=== PATIENT | male | born 1970 | race Caucasian/White ===

== ENCOUNTER 2017-02-15 07:51 | Emergency (ER) | payer OTHER ==
--- NOTE | 2017-02-15 09:54 | RAD ---
Indication: Left leg pain. Duplex Doppler sonography of the deep venous system of the left lower extremity deep venous system was performed. Bilaterally the common femoral veins appear patent and compressible. Left proximal greater saphenous vein, proximal deep femoral vein, femoral vein, popliteal vein, and peroneal veins appear patent and compressible. The paired posterior tibial veins demonstrates no evidence of flow with noncompressibility. This is consistent with deep venous thrombosis. IMPRESSION: DEEP VENOUS THROMBOSIS INVOLVING THE PAIRED POSTERIOR TIBIAL VEINS IN THE CALF.
[2017-02-15 09:56] VITALS: BP 136/88
--- NOTE | 2017-02-15 10:27 | UC ---
Lower Extremity/Ankle HPI - HPI Summary HPI Summary: 4 DAYS OF WORSENING LEFT CALF PAIN AND ANKLE SWELLING. PT TOOK AN AIRPLANE TO [place] 01/21/17 AND RETURNED 02/05/17. 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 DENIES CP, SOB OR NAUSEA. PAIN IMPROVES WITH ACTIVITY. NO PERSONAL OR FAMILY H/O CLOTTING OR BLOOD DISORDERS. - History of Current Complaint Chief Complaint: UCLowerExtremity Stated Complaint: LOWER LEG PAIN Time Seen by Provider: 02/15/17 09:03 Hx Obtained From: Patient Onset/Duration: Gradual Onset, Lasting Days, Still Present Severity Initially: Mild Severity Currently: Mild Pain Intensity: 1 Pain Scale Used: 0-10 Numeric Alleviating Factor(s): Nothing Able to Bear Weight: Yes - Allergies/Home Medications Allergies/Adverse Reactions: Allergies Allergy/AdvReac Type Severity Reaction Status Date / Time No Known Allergies Allergy Verified 02/15/17 07:57 Home Medications: Home Medications Ibuprofen TAB* [Advil TAB*] 2 tab PO PRN 02/15/17 [History] PMH/Surg Hx/FS Hx/Imm Hx Previously Healthy: Yes - Surgical History Surgical History: None - Family History Known Family History: Negative: Blood Disorder - Social History Alcohol Use: None Substance Use Type: None Smoking Status (MU): Never Smoked Tobacco Review of Systems Constitutional: Negative Skin: Negative Respiratory: Negative Cardiovascular: Negative Gastrointestinal: Negative Musculoskeletal: Calf Tenderness All Other Systems Reviewed And Are Negative: Yes Physical Exam Triage Information Reviewed: Yes Appearance: Well-Appearing, No Pain Distress, Well-Nourished Vital Signs: Initial Vital Signs Temp 98.4 F 02/15/17 07:58 Pulse 73 02/15/17 07:58 Resp 16 02/15/17 07:58 BP 138/94 02/15/17 07:58 Pulse Ox 100 02/15/17 07:58 Vital Signs Reviewed: Yes Eyes: Positive: Conjunctiva Clear ENT: Positive: Hearing grossly normal Neck: Positive: Supple Respiratory Exam: Normal Cardiovascular Exam: Normal Abdomen Description: Positive: Soft Musculoskeletal: Positive: ROM Intact, Other: - CALF CIRCUMFERENCE: RIGHT 37.5CM , LEFT 39.5CM. LEFT CALF TENDERNESS. EQUIVOCAL HOMANS Neurological: Positive: Alert Psychological: Positive: Age Appropriate Behavior Skin: Negative: rashes Lower Extremity Course/Dx - Course Course Of Treatment: TO [facility] BY PRIVATE CAR - Differential Dx/Diagnosis Provider Diagnoses: DEEP VENOUS THROMBOSIS INVOLVING THE PAIRED POSTERIOR TIBIAL VEINS IN THE LEFT CALF Discharge - Discharge Plan Condition: Stable Disposition: AGAINST MEDICAL ADVICE Referrals: Joshua Wood MD [Primary Care Provider] -
== END 2017-02-15 10:32 | disposition left against medical advice (07) ==
LOC: UCEAST 07:51
DX: I82.402 Acute embolism and thrombosis of unspecified deep veins of left lower extremity (principal)
CPT/HCPCS: 99202; G0463

== ENCOUNTER → 2017-02-15 10:44 | Emergency (ER) | payer OTHER ==
[~2017-02-15 10:44] MED LIST: Rivaroxaban TAB(*) 15 MG PO ONE
[2017-02-15 12:52] LABS: Hematocrit 43 % (42-52); Hemoglobin 14.5 g/dl (14.0-18.0); Mean Corpuscular HGB Conc 33 g/dl (31-36); Mean Corpuscular Hemoglobin 30 pg (27-31); Mean Corpuscular Volume 90 fL (80-94); Mean Platelet Volume 9 um3 (7.4-10.4); Red Blood Count 4.81 10^6/ul (4.0-5.4); Red Cell Distribution Width 13 % (10.5-15); White Blood Count 8.1 10^3/ul (3.5-10.8)
[2017-02-15 13:21] LABS: BUN/Creatinine Ratio 18.9 (8-20); Calcium 9.2 mg/dL (8.6-10.3); EGFR African American 145.2 (>60); EGFR Non-African American 112.9 (>60); Globulin 2.9 g/dL (2-4); Potassium 4.3 mmol/L (3.5-5.0); Total Bilirubin 0.8 mg/dL (0.2-1.0); Total Protein 6.9 g/dL (6.4-8.9)
[2017-02-15 15:10] VITALS: BP 133/77
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
== END | disposition home or self-care (01) ==
LOC: ED 10:44
DX: I82.4Z2 Acute embolism and thrombosis of unspecified deep veins of left distal lower extremity (principal); M25.572 Pain in left ankle and joints of left foot
CPT/HCPCS: 36415; 80053; 85025; 85610; 85730; 99282

== ENCOUNTER 2017-04-09 17:24 | Observation (INO) | payer OTHER ==
[2017-04-09] MEDS ORDERED: NS 0.9% 1000 ML* 1,000 ML IV ONE ×2 (17:31→21:14)
--- NOTE | 2017-04-09 18:02 | RAD ---
Indication: Fever. Single frontal view of the chest performed at 1743 hours was reviewed. No prior study is available for comparison. No mediastinal shift is noted. Heart is of normal size and configuration. Lung snyder appear clear. IMPRESSION: NO ACTIVE CARDIOPULMONARY DISEASE IS NOTED.
[2017-04-09 18:33] LABS: Hematocrit 35 % (42-52); Hemoglobin 12.2 g/dl (14.0-18.0); Mean Corpuscular HGB Conc 35 g/dl (31-36); Mean Corpuscular Hemoglobin 31 pg (27-31); Mean Corpuscular Volume 90 fL (80-94); Mean Platelet Volume 9 um3 (7.4-10.4); Red Blood Count 3.91 10^6/ul (4.0-5.4); Red Cell Distribution Width 14 % (10.5-15); White Blood Count 10.7 10^3/ul (3.5-10.8)
[2017-04-09 18:44] LABS: Urine Bacteria Absent (Absent); Urine Bilirubin Negative (Negative); Urine Glucose Negative (Negative); Urine Nitrite Negative (Negative)
[2017-04-09 18:46] LABS: Albumin 3.8 g/dL (3.2-5.2); Calcium 8.6 mg/dL (8.6-10.3); EGFR African American 94.9 (>60); EGFR Non-African American 73.8 (>60); Globulin 3.2 g/dL (2-4); Potassium 3.6 mmol/L (3.5-5.0); Total Bilirubin 1.5 mg/dL (0.2-1.0)
[2017-04-09 18:55] LABS: Troponin I 0.08 ng/mL (<0.04)
[2017-04-09] MEDS ORDERED: Acetaminophen TAB* 325 MG PO ONE (19:34)
[2017-04-09 19:59] LABS: Troponin I 0.09 ng/mL (<0.04)
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
[2017-04-09] MEDS ORDERED: NS 0.9% 1000 ML* 1,000 ML IV SCH (21:15)
[2017-04-09] MEDS ORDERED: Acetaminophen TAB* 325 MG PO PRN (21:17)
[2017-04-09 21:54] LABS: C Reactive Protein 161.61 mg/L (< 5.00)
[2017-04-09] MEDS: DOXYcycline CAP(*) 100 MG PO SCH (22:11)
[2017-04-09] MEDS ORDERED: Rivaroxaban TAB(*) 20 MG TAB PO SCH (22:30)
--- NOTE | 2017-04-10 01:31 | HP ---
CC: Dr. Wood * [facility] MEDICINE HISTORY AND PHYSICAL: DATE OF ADMISSION: 04/09/17 PRIMARY CARE PHYSICIAN: Dr. Wood. ATTENDING PHYSICIAN: Felix Bone MD * (dictation provided by Katina Parham NP). CHIEF COMPLAINT: Lightheadedness, feeling drained, and fever. HISTORY OF PRESENT ILLNESS: Mr. 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 The patient has been on Xarelto and taking it regularly. He reports that the pain related to the DVT in his left lower extremity resolved after about a week. The patient states he is very active. 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 Yesterday at about noon, he suddenly began feeling unwell. He initially describes it as feeling dizzy, but on further questioning , he denies any room spinning. He describes more a feeling of lightheadedness and a feeling of being drained. He likens it to what he would expect it would feel like to have low blood sugar or low blood pressure, although he himself has never had either. He was able to ride his bike home despite this feeling and had an uneventful evening. In the morning, he woke and again, felt very drained. He went to work. He had a mild headache and felt a little bit disoriented. He took his heart rate and it was 95, which seemed high for him for being at rest and ultimately he decided to come to the emergency room for evaluation. In the emergency room, Mr. Guerrier was noted to have a fever. Initially it was 102.5 and peaked at 103.7, but now it is down to 98.8. With this, he is tachycardic with heart rate running into 120s. His blood pressure is running 110s to 130s. His O2 saturation is 100% on room air. His respiratory rate is up as high as 32. His labs show no leukocytosis. He has a slight hyponatremia with sodium of 131. His T-bili is slightly elevated to 1.5 and his hemoglobin is down to 12.2. His other LFTs are normal. He also has elevated troponin from 0.08 on arrival to 0.09 on followup. His urine shows no evidence of infection. His group A strep swab is negative. Chest x-ray is negative. His EKG shows no evidence of ischemia. PAST MEDICAL HISTORY: DVT, on Xarelto. MEDICATIONS: Xarelto 20 mg p.o. daily. ALLERGIES: No known drug allergies. FAMILY HISTORY: The patient's father's history is unknown, but mother is very active and runner at age 72. REVIEW OF SYSTEMS: A 14-point review of systems was completed with Mr. Guerrier and all those not mentioned above were negative. PHYSICAL EXAMINATION GENERAL: Mr. Guerrier is sitting in bed. He is in no acute distress. VITAL SIGNS: Temp 98.8, heart rate 119, respiratory rate 28, O2 saturation 100 % on room air, blood pressure 118/74. LUNGS: Clear to auscultation bilaterally without accessory muscle use and good aeration. HEART: S1, S2. No murmur, rub, or gallop and regular. ABDOMEN: Soft, nontender with bowel sounds positive x4. NEURO: He is alert. He is oriented x3. He moves all extremities equally. There is no facial asymmetry or focal weakness. Extraocular movements are intact. EXTREMITIES: No cyanosis or edema. SKIN: The patient has very tiny red bug bite area of erythema to his mid calf on the medial portion. He states that this is where the tick bite was. There was no evidence of erythema migrans. DIAGNOSTIC STUDIES/LAB DATA: WBC 10.7, hemoglobin 12.2, hematocrit 35, platelet count 139. INR 1.35. Sodium 131, potassium 3.6, chloride 98, serum bicarbonate 24, BUN 16, creatinine 1.07, glucose 115. Troponin is 0.08, followed by 0.09. Urine shows no evidence of infection. Group A strep swab is negative. Chest x-ray shows no evidence of infection. EKG shows sinus rhythm and no evidence of ischemia. ASSESSMENT AND PLAN: Mr. Guerrier is a 47-year-old male who had a recent diagnosis of deep venous thrombosis in January 2017, on Xarelto. He presents with a day and a half of odd sensations of feeling lightheaded and drained now with fever, tachycardia, and elevated troponin. Our plans are for observation in the hospital for the followin. Fever: I suspect that the patient's initial symptoms were indicative of an early infection. His workup thus far is negative with a negative UA and chest x - ray. He also has no leukocytosis. I am more suspicious for a viral process, but with his recent tick bite, I am suspicious for possible Lyme disease or other tick- borne illness. Plan to start doxycycline given this tick bite was the most proximal event related to his fever. Plan to provide intravenous fluids while he is febrile and tachycardiac. He will also have Tylenol available p.r.n. His lactic acid is normal. Blood cultures have been sent. 2. Elevated troponin. This is in the setting of fever and tachycardia and I therefore suspect a demand ischemia. The patient is a very active and does aerobic activity frequently without any report of chest pain or unusual shortness of breath; however, it is possible that this elevated troponin could be unmasking some underlying coronary artery disease and I think it is prudent to watch the patient overnight with telemetry monitoring and for him to have a transthoracic echocardiogram. 3. Deep venous thrombosis. Continue Xarelto. 4. Code status: Full code. 5. Disposition: To telemetry floor. TIME SPENT: Approximately 60 minutes was spent on the admission of this patient, more than half time spent with the patient at the bedside reviewing the events leading up to this hospitalization, performing the physical examination, and reviewing my plan of care. KATINA PARHAM NP [id number]/[facility] #: [id number] ADIEL
[2017-04-10 05:13] LABS: Hematocrit 33 % (42-52); Hemoglobin 11.2 g/dl (14.0-18.0); Mean Corpuscular HGB Conc 34 g/dl (31-36); Mean Corpuscular Hemoglobin 31 pg (27-31); Mean Corpuscular Volume 91 fL (80-94); Mean Platelet Volume 8 um3 (7.4-10.4); Red Blood Count 3.65 10^6/ul (4.0-5.4); Red Cell Distribution Width 13 % (10.5-15); White Blood Count 8.7 10^3/ul (3.5-10.8)
[2017-04-10 07:36] VITALS: BP 99/68
[2017-04-10 08:57] LABS: Albumin 3.1 g/dL (3.2-5.2); BUN/Creatinine Ratio 17.1 (8-20); Calcium 7.8 mg/dL (8.6-10.3); EGFR Non-African American 100.3 (>60); Globulin 2.6 g/dL (2-4); Potassium 3.8 mmol/L (3.5-5.0); Total Bilirubin 1.1 mg/dL (0.2-1.0); Total Protein 5.7 g/dL (6.4-8.9)
--- NOTE | 2017-04-10 09:51 | ECHO ---
Patient: JACY SORTO [facility] Rec#: [id number] : 1970 Date: 04/10/2017 Age: 47y Height: 177.8 cm / 70.0 in Weight: 83.01 kg / 183.0 lbs Sex: M BSA: 2.01 Room#: 444 Admit Date#: 04/09/2017 Type: Inpatient Referring: Katina Parham NP Reading: Iggy Street MD Hand Or Machine Paster: Caitlin Saini RDCS,RDMS Transthoracic Echocardiogram Indication: Fever, Elevated troponin BP: 123/50 HR: 86 Rhythm: NSR Findings History: DVT Technical Comments: The study quality is good. Completed Left Ventricle: The left ventricular chamber size is normal. There is no left ventricular hypertrophy. Global left ventricular wall motion and contractility are within normal limits. Left ventricular systolic function is at the lower limits of normal. The estimated ejection fraction is 50-55%. There is no consistent Doppler evidence of clinically significant diastolic dysfunction. Left Atrium: The left atrium is mildly dilated. Right Ventricle: The right ventricular chamber size and systolic function are within normal limits. Right Atrium: The right atrium is slightly dilated. Aortic Valve: The aortic valve is trileaflet. There is no evidence of aortic valve thickening. Systolic excursion of the aortic valve is normal. There is no evidence of aortic regurgitation. There is no evidence of aortic stenosis. Mitral Valve: The mitral valve leaflets appear normal. There is a trace of mitral regurgitation. There is no evidence of mitral stenosis. Tricuspid Valve: The tricuspid valve leaflets are normal. There is trace tricuspid regurgitation. No pulmonary hypertension is noted. Pulmonic Valve: The pulmonic valve appears normal. There is a trace pulmonic regurgitation. Pericardium: There is no significant pericardial effusion. Aorta: The aortic root appears normal. There is no dilatation of the aortic arch. Pulmonary Artery: The main pulmonary artery appears normal. Venous: The inferior vena cava appears normal in size. There is an approximate 50% respiratory change in the inferior vena cava dimension. Summary: There was not any prior study for comparison. Conclusions Global left ventricular wall motion and contractility are within normal limits. Left ventricular systolic function is at the lower limits of normal. The estimated ejection fraction is 50-55%. The right ventricular chamber size and systolic function are within normal limits. There is no evidence of aortic valve thickening. There is no evidence of aortic stenosis. There is a trace of mitral regurgitation. There is trace tricuspid regurgitation. There is no significant pericardial effusion. Measurements Name Value Normal Range RVIDd (AP) 2D 3.7 cm (0.9 - 2.6) RVDdMajor (2D) 4.6 cm (2.2 - 4.4) RAd ISD 4CH 5.4 cm (3.4 - 4.9) RA (A4C)W 4.7 cm (2.9 - 4.6) IVSd (2D) 0.9 cm (0.6 - 1) LVPWd (2D) 1 cm (0.6 - 1) LVIDd (2D) 4.6 cm (3.6 - 5.4) LVIDs (2D) 3.4 cm - LV FS (2D) 26 % (25 - 45) Aortic Annulus 2.2 cm (1.4 - 2.6) Ao root diameter (2D) 3.2 cm (2.1 - 3.5) Ascending Ao 2.9 cm (2.1 - 3.4) Aortic arch 2.9 cm (1.8 - 3.4) LA dimension (AP) 2D 3.1 cm (2.3 - 3.8) LAd ISD 4CH 5.9 cm (2.9 - 5.3) LA ISD 4CH W 4.2 cm (2.5 - 4.5) Name Value Normal Range LA ESV SP 4CH (A/L) 72.73 ml - LA ESV SP 2CH (A/L) 90.48 ml - LA ESV BP (A/L) 83.26 ml - LA ESV BP (A/L) index 41.4 ml/m2 - LA ESV SP 4CH (MOD) 66.59 ml - LA ESV SP 2CH (MOD) 84.1 ml - Name Value Normal Range MV E-wave Vmax 0.6 m/sec - MV deceleration time 129.5 msec - MV A-wave Vmax 0.5 m/sec - MV E:A ratio 1.2 ratio - P. vein S-wave Vmax 0.6 m/sec - P. vein D-wave Vmax 0.5 m/sec - P. vein S:D Vmax ratio 1.3 ratio - P. vein A-wave duration 93.4 msec - LV septal e' Vmax 0.1 m/sec - LV lateral e' Vmax 0.11 m/sec - LV E:e' septal ratio 6 ratio - LV E:e' lateral ratio 5.5 ratio - Name Value Normal Range AV Vmax 1.2 m/sec - AV VTI 21.2 cm - AV peak gradient 6 mmHg - AV mean gradient 3.6 mmHg - LVOT Vmax 1.1 m/sec - LVOT VTI 19.1 cm - LVOT peak gradient 5 mmHg - LVOT mean gradient 2.5 mmHg - DANNY Vmax 1 m/sec - Name Value Normal Range TR Vmax 1.8 m/sec - TR peak gradient 13 mmHg - RAP 3 mmHg - RVSP 16 mmHg - IVC diameter 1.5 cm - Name Value Normal Range PV Vmax 0.7 m/sec - PV peak gradient 2 mmHg -
[2017-04-10] MEDS: DOXYcycline CAP(*) 100 MG PO SCH (10:01)
[2017-04-10 11:19] LABS: Mono Internal Control QC Line Present
--- NOTE | 2017-04-11 07:45 | DS ---
CC: Joshua Wood MD * DISCHARGE SUMMARY: DATE OF ADMISSION: 04/09/17 DATE OF DISCHARGE: 04/10/17 PRIMARY CARE PROVIDER: Joshua Wood MD DISCHARGING PROVIDER: ROMA Varela SUPERVISING PHYSICIAN: Jay Rodríguez MD * (dictated by ROMA Varela) PRIMARY DISCHARGE DIAGNOSES: 1. Febrile illness with high suspicion for Lyme disease. 2. 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 SECONDARY DISCHARGE DIAGNOSIS: DVT diagnosed in January 2017, currently anticoagulated on Xarelto. DISCHARGE MEDICATIONS: 1. Doxycycline 100 mg p.o. b.i.d. x14 days. 2. Xarelto 20 mg p.o. daily. MEDICATIONS CHANGES: Doxycycline x14 days. HOSPITAL IMAGING: Chest x-ray shows no acute process. HOSPITAL COURSE: This is a very pleasant and active 47-year-old gentleman who was diagnosed with a DVT in January 2017, but otherwise quite healthy and is not treated for any other chronic medical conditions, who presented to the emergency department with complaints of dizziness. He was found to have a high fever with a maximum temperature of 103.7 degrees Fahrenheit and was initially tachycardic in the emergency department. Initial EKG showed sinus tach without ischemic changes, but his initial troponin was elevated at 0.08. The patient did report a recent tick bite, but no associated rash or myalgias. Due to his elevated troponin and high fever, the patient was subsequently admitted to the hospital for further evaluation. The patient was empirically treated for Lyme disease and started on oral doxycycline and received IV fluids. Serial troponins remained fairly stable with a peak at 0.09, and repeat down to 0.07. He did not complain of any chest pain, and repeat EKG showed no ischemic changes. Echocardiogram was completed, which showed no evidence of cardiomyopathy or focal wall motion abnormalities. The patient reported complete resolution of his prior complaints of dizziness and remained afebrile overnight. DISPOSITION AND FOLLOWUP PLAN: The patient is being discharged to home with 2 weeks of empiric doxycycline. The Lyme serology is pending at the time of discharge. Recommend follow up with his primary care provider within approximately 1 week. ROMA VARELA [id number]/[facility] #: [id number] [facility] SYSTEMConstantine
== END 2017-04-10 11:35 | disposition home or self-care (01) ==
LOC: ED 17:24 → MEDTELE 21:12
PROVIDERS: ADMIT Internal Medicine; ATTEND Hospitalist
DX: R50.9 Fever, unspecified (principal); R74.8 Abnormal levels of other serum enzymes; R42 Dizziness and giddiness; R00.0 Tachycardia, unspecified; Z86.718 Personal history of other venous thrombosis and embolism; Z79.01 Long term (current) use of anticoagulants
CPT/HCPCS: 36415; 71010; 80053; 81003; 81015; 82550; 82553; 83605; 84484; 85025; 85610; 85730; 86140; 86308; 87040; 87651; 93005; 93306; 96360; 96361; 99291; A9270-GY; G0378

== ENCOUNTER 2024-01-29 23:27 | Inpatient (IN) ==
[2024-01-30 01:43] LABS: ABS Lymphocytes 1.1 10^3/uL (1.0-4.8); ABS Neutrophils 11.2 10^3/uL (1.5-7.6); ABS Nucleated RBC 0.03 10^3/ul; Eosinophil % 0.1 %; Hematocrit 41.3 % (38-53); Hemoglobin 14.5 g/dL (13.2-16.3); Lymphocyte % 8.1 %; Mean Corpuscular Hemoglobin 31.9 pg (27-33); Mean Corpuscular Hgb Conc 35.1 g/dL (31-36); Mean Corpuscular Volume 90.9 fL (80-97); Mean Platelet Volume 8.8 fL (7.5-11.2); Nucleated Red Blood Cells % 0.2 %/100WBC (0.0-0.8); Platelet Count 272 10^3/uL (150-450); Red Blood Count 4.54 10^6/uL (4.06-5.63); Red Cell Distribution Width 13.3 % (12-17); White Blood Count 13.4 10^3/uL (3.6-10.2)
[2024-01-30 02:02] LABS: Urine Benzodiazepine Screen None Detected (None Detect); Urine Cannabinoids Screen None Detected (None Detect); Urine Opiates Screen None Detected (None Detect)
[2024-01-30 02:09] LABS: Urine Appearance Clear; Urine Bilirubin Negative (Negative); Urine Blood Negative (Negative); Urine Color Light-Yellow; Urine Glucose 2+ (>=150 mg/dL) (Negative); Urine Ketones Negative (Negative); Urine Nitrite Negative (Negative); Urine Protein Negative (Negative); Urine Specific Gravity 1.017 (1.002-1.030); Urine Urobilinogen Negative (Negative)
[2024-01-30 02:54] LABS: ALT 27 U/L (7-52); AST 20 U/L (13-39); Acetaminophen < 15 mcg/mL; Albumin 4.7 g/dL (3.2-5.2); Alcohol, S < 13 mg/dL (<13); Alkaline Phosphatase 50 U/L (35-149); Anion Gap 10 mmol/L (2-16); Blood Urea Nitrogen 22 mg/dL (6-24); CO2 Carbon Dioxide 21 mmol/L (22-32); Calcium 9.5 mg/dL (8.6-10.3); Chloride 105 mmol/L (101-111); Creatinine, Serum 0.96 mg/dL (0.67-1.17); Globulin 2.4 g/dL (2-4); Glucose 132 mg/dL (70-100); Potassium 4.2 mmol/L (3.5-5.0); Salicylate < 2.50 mg/dL (<30); Sodium 136 mmol/L (135-145); Total Bilirubin 0.5 mg/dL (0.2-1.0); Total Protein 7.1 g/dL (6.4-8.9); eGFR CKD-EPI 93.9 (>60)
[2024-01-30 03:09] LABS: TSH Ultra Thyroid Stim Horm 2.32 mcIU/mL (0.34-5.60)
[2024-01-30] MEDS ORDERED: Al Hydrox/Mg Hydrox/Simet LIQ 30 ML UDC PO PRN (03:41)
[2024-01-30 04:55] VITALS: BP 146/90
[2024-01-30] MEDS: Vitamin THERAPEUTIC TAB PO SCH (10:25)
== END 2024-01-30 11:36 | disposition home or self-care (01) | DRG 881 ==
LOC: ED 23:27 → EDHOLD 01-30 02:55 → BSU 01-30 04:07
PROVIDERS: ADMIT Psychiatry & Neurology Psychiatry; ATTEND Psychiatry & Neurology Psychiatry